=== PATIENT | female | born 1980 | race Caucasian/White ===

== ENCOUNTER 2024-04-11 11:44 | Observation (INO) | payer SELFPAY ==
[2024-04-11] MEDS ORDERED: ONDANSETRON 4 MG/2 ML VIAL ONE (13:02)
[2024-04-11] MEDS ORDERED: NA CHLORIDE 0.9% 1,000 ML ONE ×2 (13:03→14:18)
[2024-04-11 13:35] LABS: Absolute Basophils 0.1 K/uL (0-0.5); Absolute Eosinophils 0.1 K/uL (0-0.5); Absolute Lymphocytes (CBC) 1.2 K/uL (0.7-4.9); Absolute Monocytes 0.7 K/uL (0.1-1.3); Absolute Neutrophil 7.7 K/uL (1.8-8.0); Basophils % 0.7 % (0-1.3); Eosinophils % 0.9 % (0-4.4); Hematocrit 42.1 % (36.0-45.0); Hemoglobin 13.9 g/dL (12.0-15.0); Lymphocytes % 11.8 % (15.3-44.8); MCH 28.3 pg (27.0-35.0); MCHC 33.1 g/dL (32.0-36.0); MCV 85.3 fL (80-100); MPV 9.9 fL (7.6-11.3); Monocytes % 7.5 % (3.3-12.3); Neutrophils % 79.1 % (41.7-73.7); Platelets 194 thou/uL (152-406); RBC Red Blood Cell Count 4.93 M/uL (3.86-4.86); Red Cell Distribution Width 14.2 % (12.1-15.2)
[2024-04-11 13:41] LABS: PT Prothrombin Time 13.9 SECONDS (9.4-12.5); PTT, Activated Partial Thromb 35.7 SECONDS (24.3-36.9); Protime INR 1.25
[2024-04-11 13:55] LABS: ALT/SGPT 22 U/L (13-56); AST/SGOT 12 U/L (15-37); Albumin 3.7 g/dL (3.4-5.0); Albumin/Globulin Ratio 0.9 (1.1-1.8); Alkaline Phosphatase 62 U/L (45-117); Anion Gap 9.1 mEq/L (5.0-15.0); BUN Blood Urea Nitrogen 8 mg/dL (7-18); Bicarbonate 27 mEq/L (21-32); Bilirubin Direct < 0.2 mg/dL (0-0.2); Bilirubin Indirect, Calculated 0.3 mg/dL (0.2-0.8); Bilirubin Total 0.5 mg/dL (0.2-1.0); Globulin 4.1 g/dL (2.3-3.5); Glomerular Filtration Rate 110 ml/min (=/>90); Glucose Level 109 mg/dL (74-106); Potassium 3.1 mEq/L (3.5-5.1); Protein, Total 7.8 g/dL (6.4-8.2); Sodium Level 139 mEq/L (136-145)
[2024-04-11 13:56] LABS: Specific Gravity 1.026 (1.005-1.030)
[2024-04-11 13:58] LABS: Specific Gravity 1.026 (1.005-1.030); Urine Bacteria 20-50 /HPF (<20); Urine Bilirubin NEGATIVE (Negative); Urine Blood Negative (Negative); Urine Clarity Extremely Turbid (Clear); Urine Color Yellow (Yellow); Urine Culture Reflex Order REFLEXED; Urine Glucose NEGATIVE (Negative); Urine Ketones 4+ (Negative); Urine Microscopic Reflex YN ORDER UMIC; Urine Mucus 4+ /HPF (None Seen); Urine Nitrite NEGATIVE (Negative); Urine Protein 1+ (Negative); Urine Urobilinogen 1+ (Normal); Urine WBC 20-50 /HPF (<5); Urine pH 6.5 (5.0-7.0)
[2024-04-11 14:01] LABS: Barbiturates NEGATIVE (NEGATIVE); Benzodiazepines NEGATIVE (NEGATIVE); Cocaine NEGATIVE (NEGATIVE); METHAMPHETAM NEGATIVE (NEGATIVE); Methadone NEGATIVE (NEGATIVE); Opiates NEGATIVE (NEGATIVE); Phencyclidine NEGATIVE (NEGATIVE); THC Cannibis POSITIVE (NEGATIVE)
[2024-04-11] MEDS ORDERED: CEFTRIAXONE 1000 MG/VIAL ONE (14:17)
[2024-04-11] MEDS ORDERED: POTASSIUM 25 MEQ EFFERV TAB ONE (14:18)
--- NOTE | 2024-04-11 16:15 | RAD REPORT ---
EXAMINATION: CT HEAD WITHOUT CONTRAST CLINICAL INDICATION: Female, 44 years old.DIZZINESS TECHNIQUE: Axial CT images from the skull base to the vertex without intravenous contrast. Coronal an d sagittal reformatted images were created from the data set. One or more of the following dose reduction techniques were used: Automated exposure control, adjustment of the mA and/or kV according to patient size, and/or iterative reconstruction. Unless otherwise specified, incidental findings do not require dedicated imaging follow-up. [id number]. COMPARISON: No prior exam. FINDINGS: INTRACRANIAL: No acute intracranial hemorrhage. No hydrocephalus. No mass effect or midline shift. No significant white matter disease.. Chiari I malformation. The cerebellar tonsils are 6 mm below foramen magnum. VASCULATURE: No visualized abnormalities in the arteries or dural venous sinuses. SCALP/SKULL: No significant soft tissue or osseous abnormalities. SINUSES: The visualized paranasal sinuses and mastoid air cells are predominantly clear. IMPRESSION: No acute intracranial abnormality. Chiari I malformation.
[2024-04-11] MEDS ORDERED: MECLIZINE HCL 12.5 MG TAB ONE (16:45)
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
--- NOTE | 2024-04-11 17:38 | ER ---
Nurse's Notes [facility] Name: Taniya Leon Age: 44 yrs Sex: Female : 1980 Arrival Date: 04/11/2024 Time: 11:44 Bed 20 Private MD: Diagnosis: Dizziness and giddiness;Weakness;Nausea with vomiting, unspecified;UTI/ Urinary tract infection, site not specified Presentation: 04/11 12:03 Chief complaint: Patient states: N/V/D, dizzy, fatigue, weakness for 1 week. ll1 Coronavirus screen: Client denies travel out of the [place] in the last 14 days. diarrhea, fatigue, nausea, vomiting. Client presents with at least one sign or symptom that may indicate coronavirus-19. Standard/surgical mask placed on the client. Ebola Screen: Patient denies travel to an Ebola-affected area in the 21 days before illness onset. Initial Sepsis Screen: Does the patient meet any 2 criteria? No. Patient's initial sepsis screen is negative. Does the patient have a suspected source of infection? No. Patient's initial sepsis screen is negative. Risk Assessment: Do you want to hurt yourself or someone else? Patient reports no desire to harm self or others. Onset of symptoms was April 03, 2024. 12:03 Method Of Arrival: Ambulatory ll1 12:03 Acuity: VASILE 3 ll1 Triage Assessment: 12:03 General: Appears uncomfortable, Behavior is calm, cooperative, appropriate for age, ll1 Reports feeling ill for fatigue for. Pain: Complains of pain in abdomen Quality of pain is described as aching, crampy. Neuro: Reports weakness. GI: Reports lower abdominal pain, upper abdominal pain, cramping, diarrhea, nausea, vomiting. Historical: - Allergies: 12:05 opiates; ll1 12:05 Codeine; ll1 12:05 Hydrocodone-Acetaminophen; ll1 - Home Meds: 12:05 None [Active]; ll1 - PMHx: 12:05 None; ll1 - PSHx: 12:05 tumor removed from leg; section; ll1 - Immunization history:: Adult Immunizations up to date. - Infectious Disease History:: Denies. - Social history:: Smoking status: Patient denies any tobacco usage or history of. Screenin:[facility] ED Fall Risk Assessment (Adult) History of falling in the last 3 months, tm6 including since admission No falls in past 3 months (0 pts) Confusion or Disorientation No (0 pts) Intoxicated or Sedated No (0 pts) Impaired Gait No (0 pts) Mobility Assist Device Used No (0 pt) Altered Elimination No (0 pt) Score/Fall Risk Level 0 - 2 = Low Risk Oriented to surroundings, Maintained a safe environment, Educated pt \T\ family on fall prevention, incl call for assistance when getting out of bed. Abuse screen: Denies threats or abuse. Denies injuries from another. Nutritional screening: No deficits noted. Tuberculosis screening: No symptoms or risk factors identified. Assessment: 13:58 General: Appears uncomfortable, Behavior is calm, cooperative. Pain: Denies pain. tm6 Neuro: Level of Consciousness is awake, alert, obeys commands, Oriented to person, place, time, situation, Reports dizziness, since one week ago. Cardiovascular: Patient's skin is warm and dry. Respiratory: Airway is patent Respiratory effort is even, unlabored, Respiratory pattern is regular, symmetrical. GI: Abdomen is flat, non-distended, Reports nausea, vomiting, since one week ago. : No signs and/or symptoms were reported regarding the genitourinary system. EENT: No signs and/or symptoms were reported regarding the EENT system. Derm: No signs and/or symptoms reported regarding the dermatologic system. Musculoskeletal: Reports general weakness for one week. 15:10 Reassessment: Patient and/or family updated on plan of care and expected duration. Pain tm6 level reassessed. Patient is alert, oriented x 3, equal unlabored respirations, skin warm/dry/pink. 17:32 Reassessment: Patient and/or family updated on plan of care and expected duration. Pain tm6 level reassessed. Patient is alert, oriented x 3, equal unlabored respirations, skin warm/dry/pink. 19:05 Reassessment: Patient and/or family updated on plan of care and expected duration. Pain br2 level reassessed. Patient is alert, oriented x 3, equal unlabored respirations, skin warm/dry/pink. Patient states symptoms have not improved. Neuro: Reports dizziness, since 1 WEEK. 20:01 Reassessment: Patient and/or family updated on plan of care and expected duration. Pain br2 level reassessed. Patient is alert, oriented x 3, equal unlabored respirations, skin warm/dry/pink. Patient states feeling better. Patient states symptoms have improved. Vital Signs: 12:03 BP 145 / 100; Pulse 87; Resp 18; Temp 97; Pulse Ox 100% ; Weight 99.79 kg; Height 5 ft. ll1 6 in. ; 13:59 BP 153 / 89; Pulse 73; Pulse Ox 97% on R/A; MAP 110 mmHg; Pain 0/10; tm6 15:10 BP 145 / 99; Pulse 75; Pulse Ox 100% on R/A; tm6 17:32 BP 161 / 87; Pulse 82; Pulse Ox 99% on R/A; MAP 110 mmHg; tm6 19:13 BP 136 / 85; Pulse 65; Resp 18 S; Pulse Ox 96% on R/A; br2 12:03 Body Mass Index 35.51 (99.79 kg, 167.64 cm) ll1 13:59 Pain Scale: Adult tm6 ED Course: 11:46 Patient arrived in ED. im 11:48 Indira Franco PA-C is PHCP. sb4 11:48 Lg Whitlock MD is Attending Physician. sb4 12:05 Triage completed. ll1 12:07 Arm band placed on. ll1 12:50 Patient placed in an exam room, on a stretcher. tm6 12:58 Krystina Shaikh, RN is Primary Nurse. tm6 13:38 Inserted saline lock: 20 gauge in right antecubital area, using aseptic technique. tm6 Blood collected. Flushed with 10 mL NS. 13:38 Acetaminophen Sent. tm6 13:38 Basic Metabolic Panel Sent. tm6 13:38 ETOH Level Sent. tm6 13:38 Hepatic Function Sent. tm6 13:38 PT-INR Sent. tm6 13:38 Salicylate Sent. tm6 13:38 Ptt, Activated Sent. tm6 13:44 Test, Urine Sent. tm6 13:44 Urinalysis w/ reflexes Sent. tm6 13:44 Urine Drug Screen Sent. tm6 13:58 EKG done, by ED staff, reviewed by Indira Franco PA-C. tm6 13:59 Patient has correct armband on for positive identification. Bed in low position. Call tm6 light in reach. Side rails up X 1. Provided Education on: use of call conklin. Client placed on continuous cardiac and pulse oximetry monitoring. NIBP monitoring applied. athletic monitor on. Pulse ox on. NIBP on. Door closed. Noise minimized. Lights dimmed. Warm blanket given. Pillow given. 16:03 Head Brain Wo Cont CT In Process Unspecified. EDMS 17:37 Grant Hurley MD is Hospitalizing Provider. sb4 19:00 Report received from LAURENCE NICHOLS. br2 19:13 No provider procedures requiring assistance completed. Patient admitted, IV remains in br2 place. intact, No redness/swelling at site. Administered Medications: 13:38 Drug: NS 0.9% IV 1000 ml IV at 1000 ml once; to be given as a bolus over 60 minutes tm6 Route: IV; Rate: 1000 ml; Site: right antecubital; 14:29 Follow up: Response: No adverse reaction; IV Status: Completed infusion; IV Intake: tm6 1000ml 13:39 Drug: Ondansetron IVP 4 mg IVP once; over 2 minutes Route: IVP; Site: right antecubital;tm6 14:28 Follow up: Response: No adverse reaction tm6 14:28 Drug: NS 0.9% IV 1000 ml IV at 1 bolus Per protocol; to be given as a bolus over 60 tm6 minutes Route: IV; Rate: 1 bolus; Site: right antecubital; 16:00 Follow up: Response: No adverse reaction; IV Status: Completed infusion; IV Intake: tm6 1000ml 14:28 Drug: Rocephin IV 1 grams IV at calculated rate once; Given slow IV push per pharmacy tm6 instructions Route: IV; Rate: calculated rate; Site: right antecubital; 16:00 Follow up: IV Status: Completed infusion; IV Intake: 10ml tm6 14:28 Drug: Potassium PO Effervescent Tablet 50 mEq PO once; dissolve in 4 ounces of water or tm6 juice Route: PO; 15:47 Follow up: Response: No adverse reaction tm6 16:48 Drug: Meclizine PO 25 mg PO once Route: PO; iw 17:32 Follow up: Response: No adverse reaction tm6 Medication: 13:59 VIS not applicable for this client. tm6 Intake: 14:29 IV: 1000ml; Total: 1000ml. tm6 16:00 IV: 1000ml; Total: 2000ml. tm6 16:00 IV: 10ml; Total: 2010ml. tm6 Outcome: 17:37 Decision to Hospitalize by Provider. sb4 20:07 Admitted to Med/surg accompanied by tech, via wheelchair, br2 20:07 Condition: stable 20:07 Instructed on the need for admit, 20:08 Patient left the ED. br2 Signatures: Dispatcher [employer] EDAngelina Morgan RN RN iw Lewis, Lynsay, RN RN ll1 Indira Franco, PA-C PA-C sb4 Ivy Hampton Tawney RN RN tm6 Sheryl Ty RN RN br2 Corrections: (The following items were deleted from the chart) 16:00 15:47 IV Status: Completed infusion; IV Intake: 1000ml tm6 tm6
--- NOTE | 2024-04-11 18:23 | P.HP ---
Certification for Inpatient Patient admitted to: Observation With expected LOS: <2 Midnights Practitioner: I am a practitioner with admitting privileges, knowledge of patient current condition, hospital course, and medical plan of care. Services: Services provided to patient in accordance with Admission requirements found in Title 42 Section 412.3 of the Code of Federal Regulations Patient History Date of Service: 04/12/24 Reason for admission: Dizziness History of Present Illness: 44 yrs old Female with no significant past medical history came to ER with nausea vomiting and dizziness and generalized weakness which has been going on for the last few days. Patient states that she has been tired for the last 1 week which got progressively worsened and was brought to ER . She has a spinning sensation whenever she moves .denies any earache or ear discharges . No fever or chills. Denies any upper respiratory symptoms . Patient states that she had been doing the keto diet successfully, which she had been in the past. 1 week ago, she broke her keto diet and ate barbecue and fried chicken later that evening. States that the day after, she had nausea vomiting diarrhea. She states that she could not hold anything down for a few days. States that it has slowly improved but she feels very weak and dizzy and can barely hold up her head and still feels very nauseated. Patient was assessed in the ER and was admitted for further monitoring Allergies acetaminophen [From [facility]] Adverse Reaction (Verified 04/11/24 19:11) Itching hydrocodone [From [facility]] Adverse Reaction (Verified 04/11/24 19:11) Itching Opioids - Morphine Analogues Adverse Reaction (Verified 04/11/24 19:11) Itching Home Medications: NK [No Home Meds] 04/11/24 - Past Medical/Surgical History Past Medical History: Reviewed- Non-Contributory Past Surgical History: Reviewed- Non-Contributory - Family History Family History: Reviewed- Non-Contributory - Family History Father -: Heart disease, Hypertension, Other (see notes) Notes: Thyroid issues - Social History Smoking Status: Current some day smoker Review of Systems 10-point ROS is otherwise unremarkable Physical Examination - Vital Signs Temperature: 97.2 F Blood Pressure: 142/98 Pulse: 78 Respirations: 18 Pulse Ox (%): 94 - Physical Exam General: Alert, Oriented x3, Cooperative, Mild distress HEENT: Atraumatic, Normocephalic Neck: Supple Respiratory: Clear to auscultation bilaterally, Normal air movement Cardiovascular: Regular rate/rhythm, Normal S1 S2 Capillary refill: <2 Seconds Gastrointestinal: Soft and benign, W/out hepatosplenomegaly Musculoskeletal: No clubbing, No swelling Integumentary: No rashes, No breakdown Neurological: Normal strength at 5/5 x4 extr, Cranial nerves 3-12 intact, Other (Anxious ) Lymphatics: No axilla or inguinal lymphadenopathy - Studies Laboratory Data (last 24 hrs) 04/11/24 04/11/24 04/11/24 13:25 13:25 13:25 WBC 9.80 Hgb 13.9 Hct 42.1 Plt Count 194 PT 13.9 H INR 1.25 APTT 35.7 Sodium 139 Potassium 3.1 L BUN 8 Creatinine 0.65 Glucose 109 H Total Bilirubin 0.5 AST 12 L ALT 22 Alkaline Phosphatase 62 Assessment and Plan - Plan Dizziness To rule out posterior circulation CVA Monitor neuro vital signs closely Will start on meclizine Valium as needed Will get MRI of the brain Hypokalemia Replace potassium Monitor under telemetry UTI Started on IV antibiotic Will obtain urine culture Change antibiotic as per sensitivity Intractable nausea vomiting Possibly related to cannabinoid syndrome Substance abuse THC positive Advised cessation GI/DVT prophylaxis Advanced directive full code Discharge Plan: Home Plan to discharge in: 48 Hours - Advance Directives Does patient have a Living Will: No Does patient have a Durable POA for Healthcare: No - Code Status/Comfort Care Code Status: Full Code Time Spent Managing Pts Care (In Minutes): 48
[2024-04-11] MEDS ORDERED: ACETAMINOPHEN 325 MG TABLET PO PRN (18:24)
[2024-04-11 20:31] VITALS: BMI 31.9
[2024-04-11] MEDS: D5.45NS W/KCL 20MEQ 1,000 ML IV SCH (20:45)
[2024-04-11] MEDS: ONDANSETRON 4 MG/2 ML VIAL IV PRN (21:03)
[2024-04-12] MEDS ORDERED: DIAZEPAM 2 MG TABLET PO PRN (00:11)
[2024-04-12] MEDS: MECLIZINE HCL 12.5 MG TAB PO PRN (04:46)
[2024-04-12 08:13] LABS: Absolute Basophils 0.1 K/uL (0-0.5); Absolute Eosinophils 0.2 K/uL (0-0.5); Absolute Lymphocytes (CBC) 1.5 K/uL (0.7-4.9); Absolute Monocytes 0.6 K/uL (0.1-1.3); Absolute Neutrophil 5.5 K/uL (1.8-8.0); Basophils % 0.9 % (0-1.3); Eosinophils % 2.3 % (0-4.4); Hematocrit 36.6 % (36.0-45.0); Hemoglobin 12.5 g/dL (12.0-15.0); MCHC 34.1 g/dL (32.0-36.0); MCV 85.1 fL (80-100); MPV 10.1 fL (7.6-11.3); Monocytes % 7.7 % (3.3-12.3); Neutrophils % 70.1 % (41.7-73.7); Nucleated Red Blood Cells % 0.1 % (0-0); Platelets 174 thou/uL (152-406); Red Cell Distribution Width 14.3 % (12.1-15.2)
[2024-04-12] MEDS: ENOXAPARIN 40 MG/0.4 ML SQ SCH (08:19)
[2024-04-12] MEDS: CEFTRIAXONE 1,000 MG in NA CHLORIDE 0.9% 50 ML IVPB SCH (08:19)
[2024-04-12 08:31] LABS: ALT/SGPT 16 U/L (13-56); Albumin 3.2 g/dL (3.4-5.0); Albumin/Globulin Ratio 0.9 (1.1-1.8); Alkaline Phosphatase 52 U/L (45-117); Anion Gap 8.4 mEq/L (5.0-15.0); BUN Blood Urea Nitrogen 5 mg/dL (7-18); Bicarbonate 28 mEq/L (21-32); Bilirubin Total 0.3 mg/dL (0.2-1.0); Globulin 3.6 g/dL (2.3-3.5); Glomerular Filtration Rate 110 ml/min (=/>90); Glucose Level 124 mg/dL (74-106); Magnesium 2.1 mg/dL (1.6-2.4); Potassium 3.4 mEq/L (3.5-5.1); Protein, Total 6.8 g/dL (6.4-8.2); Sodium Level 142 mEq/L (136-145)
[2024-04-12 08:32] LABS: AST/SGOT < 10 U/L (15-37)
--- NOTE | 2024-04-12 09:18 | RAD REPORT ---
EXAM:Carotid Artery Bilateral CLINICAL INDICATION: dizziness TECHNIQUE: Real-time grayscale, color flow, and spectral Doppler sonographic images were obtained of the extracranial carotid system using a linear transducer. Arterial peak systolic velocities are recorded as follows. COMPARISON: No prior exam. FINDINGS: RIGHT: Common carotid artery: 94 cm/s Internal carotid artery: 82 cm/s Right ICA/CCA ratio: 0.87 Plaque None External carotid artery: 102 cm/s Vertebral artery: Antegrade LEFT: Common carotid artery: 96 cm/s Internal carotid artery: 139 cm/s Left ICA/CCA ratio: 1.45 Plaque None External carotid artery: 85 cm/s Vertebral artery: Antegrade IMPRESSION: No hemodynamically significant stenosis (greater than 50%) within the extracranial internal carotid a rteries. Mildly elevated left mid ICA velocity, likely due to tortuosity. The degrees of stenosis, if any, are quantified according to the consensus statement of the Society o f Radiologists in Ultrasound (SRUS). Please refer to Eloy E, Reinaldo C, Kyle G et al. Carotid Artery Stenosis: Nixon-Scale and Doppler US Diagnosis--Society of Radiologists in Ultrasound Consensus Conference. Radiology. 2003;229(2):340-6. doi:10.1148/[id number]
--- NOTE | 2024-04-12 12:17 | P.PN ---
Subjective Date of Service: 04/12/24 Chief Complaint: Dizziness Subjective: Improving (less nausea/vomiting) Review of Systems 10-point ROS is otherwise unremarkable General: Weakness, Malaise Eyes: Unremarkable ENT: Unremarkable Respiratory: Unremarkable Cardiovascular: Unremarkable Gastrointestinal: Nausea, Vomiting, As per HPI (improving moderately) Genitourinary: Other (pt states she spent the wkend with a new Man friend, s/s began after she drove him back to [place]) Musculoskeletal: Unremarkable Integumentary: Unremarkable Neurological: Unremarkable Lymphatics: Unremarkable Physical Examination - Vital Signs Temperature: 98 F Blood Pressure: 165/90 Pulse: 77 Respirations: 16 Pulse Ox (%): 99 - Physical Exam General: Alert, In no apparent distress, Oriented x3 HEENT: Atraumatic, Normocephalic Neck: Supple Respiratory: Normal air movement Cardiovascular: Normal pulses, Regular rate/rhythm Capillary refill: <2 Seconds Gastrointestinal: Soft and benign Musculoskeletal: No clubbing, No swelling Integumentary: No rashes Neurological: Other (no nystagmus) Lymphatics: No axilla or inguinal lymphadenopathy External genitalia: Deferred Rectal: Deferred - Studies Laboratory Data (last 24 hrs) 04/11/24 04/11/24 04/11/24 13:25 13:25 13:25 WBC 9.80 Hgb 13.9 Hct 42.1 Plt Count 194 PT 13.9 H INR 1.25 APTT 35.7 Sodium 139 Potassium 3.1 L BUN 8 Creatinine 0.65 Glucose 109 H Total Bilirubin 0.5 AST 12 L ALT 22 Alkaline Phosphatase 62 Assessment And Plan - Plan Assessment and Plan - Plan Dizziness To rule out posterior circulation CVA Monitor neuro vital signs closely Will start on meclizine Valium as needed Will get MRI of the brain Hypokalemia Replace potassium Monitor under telemetry UTI Started on IV antibiotic Will obtain urine culture Change antibiotic as per sensitivity Intractable nausea vomiting Possibly related to cannabinoid syndrome Pt spent weekend with new Man friend, wonders if she could have been given a drug of some kind. recommend home safety and monitoring Substance abuse THC positive Advised cessation GI/DVT prophylaxis Advanced directive full code Discharge Plan: Home Plan to discharge in: 48 Hours - Advance Directives Does patient have a Living Will: No Does patient have a Durable POA for Healthcare: No - Code Status/Comfort Care Code Status: Full Code Time Spent Managing Pts Care (In Minutes): 48
[2024-04-12] MEDS: AZITHROMYCIN IV 500 MG in NA CHLORIDE 0.9% 250 ML IVPB SCH (13:00)
--- NOTE | 2024-04-12 14:21 | RAD REPORT ---
EXAMINATION: MRI BRAIN WITHOUT CONTRAST CLINICAL INDICATION: Female, 44 years old.[facility] N to r/o Post circulation Stroke TECHNIQUE: Multiplanar multisequence MR images of the brain were obtained without intravenous contras t. Unless otherwise specified, incidental findings do not require dedicated imaging follow-up. COMPARISON: Head CT 04/11/2024 FINDINGS: INTRACRANIAL: Cerebellar tonsils extend approximately 6 mm below the level of the foramen magnum. Inc identally noted partially empty sella. Midline structures are otherwise unremarkable. Diffusion-weighted images show no acute or early subacute infarction. No abnormal brain parenchymal s ignal. The ventricles are normal in size and morphology. No augmented susceptibility signal abnormality. There is no mass effect or midline shift. No abnormal extraaxial fluid collection. VASCULATURE: Normal signal voids in the larger intracranial arteries and dural venous sinuses. SINUSES: The paranasal sinuses and mastoid air cells are predominantly clear. BONE: The marrow signal pattern is within normal limits. IMPRESSION: No significant intracranial abnormalities. 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 Incidentally noted partially empty sella. Please correlate clinically for signs/symptoms of idiopathi c increased intracranial pressure.
[2024-04-12 14:50] VITALS: O2SAT 99
[2024-04-12 16:02] VITALS: BP 168/80; TEMP 97.9
[2024-04-12 17:33] LABS: Thyroid Stimulating Hormone 6.86 uIU/mL (0.358-3.740)
--- NOTE | 2024-04-12 18:03 | P.DS ---
Admission Date: 04/11/24 Discharge Date: 04/12/24 Disposition: ROUTINE DISCHARGE Discharge Condition: GOOD Reason for Admission: Dizziness Brief History of Present Illness: 44 yrs old Female with no significant past medical history came to ER with nausea vomiting and dizziness and generalized weakness which has been going on for the last few days. Patient states that she has been tired for the last 1 week which got progressively worsened and was brought to ER . She has a spinning sensation whenever she moves .denies any earache or ear discharges . No fever or chills. Denies any upper respiratory symptoms. Patient states that she had been doing the keto diet successfully, which she had been in the past. 1 week ago, she broke her keto diet and ate barbecue and fried chicken later that evening. States that the day after, she had nausea vomiting diarrhea. She states that she could not hold anything down for a few days. States that it has slowly improved but she feels very weak and dizzy and can barely hold up her head and still feels very nauseated. Patient was assessed in the ER and was admitted for further monitoring Hospital Course: Ms. Leon was less dizzy, less nauseated, and feeling a little better this morning. 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 Incidentally noted partially empty sella. Please correlate clinically for signs/symptoms of idiopathic increased intracranial pressure. Results given to patient with discharge instructions and she was encouraged to follow-up with her PCP and neurology. Vital Signs/Physical Exam: Temp Pulse Resp BP Pulse Ox 97.9 F 80 16 168/80 H 97 04/12/24 16:00 04/12/24 16:00 04/12/24 16:00 04/12/24 16:00 04/12/24 16:00 General: Alert, In no apparent distress, Oriented x3 HEENT: Atraumatic, Normocephalic Neck: Supple Respiratory: Normal air movement Cardiovascular: Regular rate/rhythm Capillary refill: <2 Seconds Gastrointestinal: Soft and benign Musculoskeletal: No clubbing, No swelling Integumentary: No rashes Neurological: Normal speech, Normal tone, Normal affect Lymphatics: No axilla or inguinal lymphadenopathy External genitalia: Deferred Rectal: Deferred Laboratory Data at Discharge: WBC 7.90 thou/uL (4.3-10.9) 04/12/24 07:27 Hgb 12.5 g/dL (12.0-15.0) D 04/12/24 07:27 Hct 36.6 % (36.0-45.0) 04/12/24 07:27 Plt Count 174 thou/uL (152-406) 04/12/24 07:27 PT 13.9 SECONDS (9.4-12.5) H 04/11/24 13:25 INR 1.25 04/11/24 13:25 APTT 35.7 SECONDS (24.3-36.9) 04/11/24 13:25 Sodium 142 mEq/L (136-145) 04/12/24 07:27 Potassium 3.4 mEq/L (3.5-5.1) L 04/12/24 07:27 BUN 5 mg/dL (7-18) L 04/12/24 07:27 Creatinine 0.64 mg/dL (0.55-1.02) 04/12/24 07:27 Glucose 124 mg/dL (74-106) H 04/12/24 07:27 Phosphorus 3.0 mg/dL (2.5-4.9) 04/12/24 07:27 Magnesium 2.1 mg/dL (1.6-2.4) 04/12/24 07:27 Total Bilirubin 0.3 mg/dL (0.2-1.0) 04/12/24 07:27 AST < 10 U/L (15-37) L 04/12/24 07:27 ALT 16 U/L (13-56) 04/12/24 07:27 Alkaline Phosphatase 52 U/L (45-117) 04/12/24 07:27 Home Medications: Meclizine HCl 25 mg PO Q8H #30 tab 04/12/24 New Medications: Meclizine HCl 25 mg PO Q8H #30 tab Physician Discharge Instructions: -DC IV and DC home -Follow-up with PCP in 1 to 2 weeks -Follow-up with Neurology-Dr. Jacques [phone] Brown-[phone] for in 1 to 2 weeks -Please call Dr. 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 Incidentally noted partially empty sella. Please correlate clinically for signs/symptoms of idiopathic increased intracranial pressure Diet: Regular Activity: Fall precautions Followup: NONE,NONE [Primary Care Provider] -
--- NOTE | 2024-04-13 12:56 | EKG ---
Test Date: 2024-04-11 Test Time: 13:52:35 Head Golf Coach: MORALES MEASUREMENT RESULTS: Intervals: Rate: 73 FL: 162 QRSD: 106 QT: 424 QTc: 467 Adrian: P: 57 FL: 162 QRS: 63 T: 45 INTERPRETIVE STATEMENTS: Normal sinus rhythm Cannot rule out Inferior infarct, age undetermined Anterolateral infarct, age undetermined Abnormal ECG No previous ECG available for comparison Electronically Signed On 04-13-24 12:51:13 CDT by Ang Cantrell
== END 2024-04-12 18:06 | disposition home or self-care (01) ==
LOC: ER 11:44 → ERHOLD 18:24 → 2ND 19:35
PROVIDERS: ADMIT Family Medicine; ATTEND Hospitalist
DX: R42 Dizziness and giddiness (principal); R11.2 Nausea with vomiting, unspecified; R53.1 Weakness; E87.6 Hypokalemia; N39.0 Urinary tract infection, site not specified; F12.10 Cannabis abuse, uncomplicated; Q07.00 Arnold-Chiari syndrome without spina bifida or hydrocephalus; Z88.6 Allergy status to analgesic agent; Z88.5 Allergy status to narcotic agent; Z71.51 Drug abuse counseling and surveillance of drug abuser
CPT/HCPCS: 36415; 70450; 70551; 80048; 80053; 80076; 80143; 80179; 80307; 81001; 81025; 82024; 82077; 83001; 83002; 83735; 84100; 84146; 84439; 84443; 85025; 85610; 85730; 87086; 87088; 93005; 93880; 96361; 96365; 96366; 96375; 99285; G0378; J0696; J1650; J2405; J7030; J7050; J8597